=== PATIENT | female | born 1985 | race African-American/Black ===

== ENCOUNTER 2016-12-09 23:43 | Emergency (ER) | payer OTHER ==
[~2016-12-09] VITALS: Ht 162.6 cm; Wt 73.0 kg
[~2016-12-09 23:43] MED LIST: ALBU1AER INH; MEDR4PAK3 PO; PRED20 PO; ZITH250T PO
[2016-12-09 23:45] VITALS: BP 129/82; PULSE 82; RESP 18; TEMP 98.4; O2SAT 100
[2016-12-10] MEDS ORDERED: ORPHENADRINE INJ 60 MG/2 ML AMP IM ONE
[2016-12-10] MEDS ORDERED: KETOROLAC TROMETHAMINE 60 MG/2 ML (IM) VIAL IM ONE
[2016-12-10] MEDS ORDERED: DICL50TA3 PO (00:01)
[2016-12-10] MEDS ORDERED: CYCL1TAB29 PO (00:01)
--- NOTE | 2016-12-10 00:06 | PD ---
HPI Chief Complaint: Pain: Acute or Chronic Time Seen by Provider: 00:01 Travel History International Travel<30 days: No Contact w/Intl Traveler<30days: No Traveled to known affect area: No History of Present Illness HPI 31-year-old black female presents to emergency department with complaints of right sided neck pain over the last day. She does not recall any traumatic injury. She noticed pain on the right neck when she had woken from sleep and this morning. She denies any recent illness. She's not sure whether she has some swollen lymph nodes on her neck. She denies any fever chills, ear pain, sore throat, cough or congestion. No trauma. PFSH Past Medical History Narrative Medical Lupus Hx Anticoagulant Therapy: No Asthma: Yes Autoimmune Disease: Yes (lupus) Cardiovascular Problems: No Chemotherapy: No Cerebrovascular Accident: No Diabetes: No Diminished Hearing: No Immune Disorder: Yes Respiratory: No Tetanus Vaccination: < 5 Years Past Surgical History Surgical History: No Previous Surgery Hysterectomy: No Social History Alcohol Use: No Tobacco Use: No Substance Use: No Allergies-Medications (Allergen,Severity, Reaction): Coded Allergies: Zofran (Verified Allergy, Unknown, SOB, 12/09/16) Reported Meds & Prescriptions Reported Meds & Active Scripts Active Diclofenac Sodium DR (Diclofenac Sodium) 50 Mg Tabdr 50 Mg PO TID Flexeril (Cyclobenzaprine HCl) 10 Mg Tab 10 Mg PO TID Review of Systems Except as stated in HPI: all other systems reviewed are Neg Physical Exam Narrative GENERAL: Well-developed, well-nourished in no apparent distress. Nontoxic appearing. HEAD: Normocephalic, atraumatic. EYES: Pupils equal round and reactive. Extraocular motions intact. No scleral icterus. No injection or drainage. ENT: Nose clear. Throat without erythema, tonsillar hypertrophy or exudate. Uvula midline. Airway patent. NECK: Trachea midline. No central bony tenderness. The patient has right paracervical tenderness and spasm. She has decreased range of motion due to pain. CARDIOVASCULAR: Regular rate and rhythm without murmurs, gallops, or rubs. RESPIRATORY: Clear to auscultation. Breath sounds equal bilaterally. No wheezes , rales, or rhonchi. GASTROINTESTINAL: Abdomen soft, non-tender, nondistended. No hepato-splenomegaly , or palpable masses. No guarding. EXTREMITIES: No clubbing, cyanosis, or edema. No joint tenderness. BACK: Nontender without deformity. No flank tenderness. NEUROLOGICAL: Awake, alert and oriented x 3 .Cranial nerves grossly intact. Motor and sensory grossly within normal limits. Normal speech. Data Data Last Documented VS Vital Signs Date Time Temp Pulse Resp B/P Pulse Ox O2 Delivery O2 Flow Rate FiO2 12/09/16 23:45 98.4 82 18 129/82 100 Orders Orphenadrine Inj (Norflex Inj) (12/10/16 00:00) Ketorolac Inj (Toradol Inj) (12/10/16 00:00) [facility] Medical Decision Making Medical Screen Exam Complete: Yes Emergency Medical Condition: Yes Medical Record Reviewed: Yes Differential Diagnosis MDM: High Differential diagnoses: Fracture, sprain, strain, dislocation, contusion, neurovascular injury, neck spasm Narrative Course Patient given Toradol 60 and Norflex 60 mg IM. This is neck spasm Diagnosis Primary Impression: Neck muscle spasm Patient Instructions: General Instructions Departure Forms: Tests/Procedures, Work Release Special Instructions: No work 3 days. Additional Instructions: Rest. Ice for the next 3 days followed by heat . Flexeril and Voltaren. Follow-up with a primary care doctor in one week. Return to the ER for emergencies. Med/Other Pt SpecificInfo: Prescription(s) given Scripts Diclofenac Sodium DR 50 Mg Tabdr50 Mg PO TID #30 TAB Prov:Emile Hussein MD 12/10/16 Cyclobenzaprine (Flexeril)10 Mg Tab10 Mg PO TID #30 TAB Prov:Emile Hussein MD 12/10/16 Disposition: 01 DISCHARGE HOME Condition: Stable Isak Fortune Dec 10, 2016 00:06
== END 2016-12-10 00:21 | disposition home or self-care (01) ==
LOC: NEPB 23:43
DX: M62.838 Other muscle spasm (principal); Z86.2 Personal history of diseases of the blood and blood-forming organs and certain disorders involving the immune mechanism; Z87.09 Personal history of other diseases of the respiratory system
CPT/HCPCS: 96374; 96375; 99283; J1885; J2360

== ENCOUNTER 2017-01-10 16:27 | Emergency (ER) | payer OTHER ==
[~2017-01-10] VITALS: Ht 162.6 cm; Wt 72.5 kg
[~2017-01-10 16:27] MED LIST changes: -ALBU1AER INH; +CYCL1TAB29 PO; +DICL50TA3 PO; -MEDR4PAK3 PO; -PRED20 PO; -ZITH250T PO
[2017-01-10 16:29] VITALS: BP 173/105; PULSE 73; RESP 16; TEMP 97.9; O2SAT 96
[2017-01-10] MEDS ORDERED: PRED-503 PO (19:14)
[2017-01-10] MEDS ORDERED: diphenhydrAMINE HCL 50 MG/ML VIAL IM ONE (19:15)
[2017-01-10] MEDS ORDERED: predniSONE 20 MG TAB PO ONE (19:15)
--- NOTE | 2017-01-10 19:17 | PD ---
HPI Chief Complaint: Skin Problem Time Seen by Provider: 19:14 Travel History International Travel<30 days: No Contact w/Intl Traveler<30days: No Traveled to known affect area: No History of Present Illness HPI 31-year-old white female presents to emergency department for evaluation of insect bite. She states that she was bitten in the left forearm yesterday by a unknown insect. She had immediate pain and swelling. It has intensified today. She denies any associated symptoms. No fever chills. No difficulty swallowing. No shortness of breath. Pain is moderate. No alleviating factors. PFSH Past Medical History Hx Anticoagulant Therapy: No Asthma: Yes Autoimmune Disease: Yes (lupus) Cardiovascular Problems: No Chemotherapy: No Cerebrovascular Accident: No Diabetes: No Diminished Hearing: No Immune Disorder: Yes Respiratory: Yes Tetanus Vaccination: < 5 Years ?: Not Past Surgical History Surgical History: No Previous Surgery Hysterectomy: No Social History Alcohol Use: Yes Tobacco Use: Yes Substance Use: No Allergies-Medications (Allergen,Severity, Reaction): Coded Allergies: Zofran (Verified Allergy, Unknown, SOB, 12/09/16) Reported Meds & Prescriptions Reported Meds & Active Scripts Active Deltasone (Prednisone) 20 Mg Tab 20 Mg PO TID Diclofenac Sodium DR (Diclofenac Sodium) 50 Mg Tabdr 50 Mg PO TID Flexeril (Cyclobenzaprine HCl) 10 Mg Tab 10 Mg PO TID Review of Systems Except as stated in HPI: all other systems reviewed are Neg Physical Exam Narrative GENERAL: This is a well-nourished, well-developed patient, in no apparent distress. SKIN: Patient has an area of erythema, warmth and induration to the dorsal proximal left forearm. This area measures approximately 6 x 6 cm. No fluctuance or pointing. This appears to be a reaction to the insect bite and not a true infection. HEAD: Atraumatic. Normocephalic. EYES: PERRL, EOMI, no discharge or injection. No scleral icterus. EARS: Clear NOSE: Nasal turbinates appear normal. THROAT: Mucosa pink and moist. Airway patent. NECK: Trachea midline. supple, moves head freely. LUNGS: Clear to auscultation. CV: Regular in rhythm. ABDOMEN: Soft nontender. EXT: No clubbing cyanosis or edema. Data Data Last Documented VS Vital Signs Date Time Temp Pulse Resp B/P Pulse Ox O2 Delivery O2 Flow Rate FiO2 01/10/17 16:29 97.9 73 16 173/105 96 Room Air Orders Diphenhydramine Inj (Benadryl Inj) (01/10/17 19:15) Prednisone (Deltasone) (01/10/17 19:15) Ice/Cold Pack (01/10/17 19:12) MDM Medical Decision Making Medical Screen Exam Complete: Yes Emergency Medical Condition: Yes Medical Record Reviewed: Yes Differential Diagnosis MDM: High Differential diagnoses: Abscess, folliculitis, cellulitis, lymphangitis, abrasion, contact dermatitis, insect bite with local reaction Narrative Course Patient's given prednisone 60 mg by mouth and Benadryl 50 mg IM. This insect bite local reaction Diagnosis Primary Impression: Insect bite of abdomen with local reaction Patient Instructions: General Instructions Additional Instructions: Rest. Elevation. Ice for the next 1-2 days. 50 g of Benadryl every 4 hours. Prednisone. Recheck with your doctor in 2 days. Return to the ER for problems. Med/Other Pt SpecificInfo: Prescription(s) given Scripts Prednisone (Deltasone)20 Mg Tab20 Mg PO TID #9 TAB Prov:Theresa Deras MD 01/10/17 Disposition: 01 DISCHARGE HOME Condition: Stable Isak Fortune Jan 10, 2017 19:17
== END 2017-01-10 19:35 | disposition home or self-care (01) ==
LOC: NEPB 16:27
DX: S50.862A Insect bite (nonvenomous) of left forearm, initial encounter (principal); Z72.0 Tobacco use; Z87.09 Personal history of other diseases of the respiratory system; Z86.2 Personal history of diseases of the blood and blood-forming organs and certain disorders involving the immune mechanism; W57.XXXA Bitten or stung by nonvenomous insect and other nonvenomous arthropods, initial encounter
CPT/HCPCS: 96372; 99281; J1200; J7512

== ENCOUNTER 2017-02-06 14:31 | Emergency (ER) | payer OTHER ==
[~2017-02-06] VITALS: Ht 162.6 cm; Wt 75.0 kg
[~2017-02-06 14:31] MED LIST changes: +PRED-503 PO
[2017-02-06 14:33] VITALS: BP 142/97; PULSE 97; RESP 16; TEMP 98.3; O2SAT 96
[2017-02-06] MEDS ORDERED: SODIUM CHLOR 0.9% 1000 ML INJ 1,000 ML IV ONE (16:00)
[2017-02-06] MEDS ORDERED: METOCLOPRAMIDE HCL 10 MG/2 ML VIAL IVP ONE (16:00)
[2017-02-06] MEDS ORDERED: diphenhydrAMINE HCL 50 MG/ML VIAL IVP ONE (16:00)
--- NOTE | 2017-02-06 16:13 | PD ---
HPI Chief Complaint: ENT Complaint Time Seen by Provider: 15:30 Travel History International Travel<30 days: No Contact w/Intl Traveler<30days: No Traveled to known affect area: No History of Present Illness HPI This is a 31-year-old female with history of lupus and asthma who presents for evaluation. She reports that since yesterday she said a generalized pulsating headache as well as tender posterior cervical lymph nodes. She has felt lightheaded and dizzy. She is also requesting refill of her albuterol medication. During examination she also endorses generalized scalp pain and pruritus which has been ongoing actually for 5 years. She has never been given a formal diagnosis for this issue but she reports that in the past she has been given prednisone which seems to help. Her physician is Dr. Galloway. [facility] Past Medical History Hx Anticoagulant Therapy: No Asthma: Yes Autoimmune Disease: Yes (lupus) Cardiovascular Problems: No Chemotherapy: No Cerebrovascular Accident: No Diabetes: No Diminished Hearing: No Immune Disorder: Yes Respiratory: Yes Tetanus Vaccination: < 5 Years Influenza Vaccination: No ?: Not LMP: 01/2017 Past Surgical History Surgical History: No Previous Surgery Hysterectomy: No Social History Alcohol Use: No Tobacco Use: Yes (11/13 ppd) Substance Use: No Allergies-Medications (Allergen,Severity, Reaction): Coded Allergies: Zofran (Verified Allergy, Unknown, SOB, 12/09/16) Reported Meds & Prescriptions Reported Meds & Active Scripts Active Triamcinolone Topical 0.025 % Oint 1 Applic TOPICAL QID 10 Days Prednisone 20 Mg Tab 20 Mg PO BID 5 Days Griseofulvin Microsize 500 Mg Tab 500 Mg PO DAILY 28 Days Review of Systems Except as stated in HPI: all other systems reviewed are Neg Physical Exam Narrative GENERAL: Well developed well-nourished female in no acute distress SKIN: Warm and dry. Significant tinea capitis formation on the chair, areas of hair loss, erythema, scaling. There is no fluctuant kerion formation. HEAD: Atraumatic. Normocephalic. EYES: Pupils equal and round. No scleral icterus. No injection or drainage. ENT: No nasal bleeding or discharge. Mucous membranes pink and moist. Minimal oropharyngeal erythema without exudate. NECK: Trachea midline. No JVD. Tender posterior cervical lymphadenopathy is noted. Neck supple full range of motion. CARDIOVASCULAR: Regular rate and rhythm. No murmur appreciated. RESPIRATORY: No accessory muscle use. Clear to auscultation. Breath sounds equal bilaterally. GASTROINTESTINAL: Abdomen soft, non-tender, nondistended. MUSCULOSKELETAL: No obvious deformities. No clubbing. No cyanosis. No edema. NEUROLOGICAL: Awake and alert. No obvious cranial nerve deficits. Motor grossly within normal limits. Normal speech. Data Data Last Documented VS Vital Signs Date Time Temp Pulse Resp B/P Pulse Ox O2 Delivery O2 Flow Rate FiO2 02/06/17 14:33 98.3 97 16 142/97 96 Orders Complete Blood Count With Diff (02/06/17 16:00) Comprehensive Metabolic Panel (02/06/17 16:00) Group A Rapid Strep Screen (02/06/17 16:00) Iv Access Insert/Monitor (02/06/17 16:00) Diphenhydramine Inj (Benadryl Inj) (02/06/17 16:00) Metoclopramide Inj (Reglan Inj) (02/06/17 16:00) Sodium Chlor 0.9% 1000 Ml Inj (Ns 1000 M (02/06/17 16:00) Ed Urine Pregnancytest Poc (02/06/17 16:00) Monoscreen (02/06/17 16:00) Electrocardiogram (02/06/17 ) Strep Culture (Group A) (02/06/17 16:30) Labs Laboratory Tests Test 02/06/17 16:30 White Blood Count 4.0 TH/MM3 Red Blood Count 4.47 MIL/MM3 Hemoglobin 14.2 GM/DL Hematocrit 42.4 % Mean Corpuscular Volume 95.0 FL Mean Corpuscular Hemoglobin 31.7 PG Mean Corpuscular Hemoglobin 33.4 % Concent Red Cell Distribution Width 13.5 % Platelet Count 203 TH/MM3 Mean Platelet Volume 9.5 FL Neutrophils (%) (Auto) 53.0 % Lymphocytes (%) (Auto) 30.1 % Monocytes (%) (Auto) 9.3 % Eosinophils (%) (Auto) 6.4 % Basophils (%) (Auto) 1.2 % Neutrophils # (Auto) 2.1 TH/MM3 Lymphocytes # (Auto) 1.2 TH/MM3 Monocytes # (Auto) 0.4 TH/MM3 Eosinophils # (Auto) 0.3 TH/MM3 Basophils # (Auto) 0.0 TH/MM3 CBC Comment DIFF FINAL Differential Comment Sodium Level 139 MEQ/L Potassium Level 4.2 MEQ/L Chloride Level 106 MEQ/L Carbon Dioxide Level 26.7 MEQ/L Anion Gap 6 MEQ/L Blood Urea Nitrogen 5 MG/DL Creatinine 0.73 MG/DL Estimat Glomerular Filtration 114 ML/MIN Rate Random Glucose 80 MG/DL Calcium Level 8.9 MG/DL Total Bilirubin 1.1 MG/DL Aspartate Amino Transf 10 U/L (AST/SGOT) Alanine Aminotransferase 14 U/L (ALT/SGPT) Alkaline Phosphatase 69 U/L Total Protein 8.2 GM/DL Albumin 4.0 GM/DL Monoscreen NEG MDM Medical Decision Making Medical Screen Exam Complete: Yes Emergency Medical Condition: Yes Medical Record Reviewed: Yes Interpretation(s) EKG sinus bradycardia, rate 56, no arrhythmias Differential Diagnosis Tinea corporis, migraine headache, infectious mononucleosis, pharyngitis, kerion , cellulitis Narrative Course This is a 31-year-old female who has suffered from significant scalp discomfort , redness, pruritus, scaling for 5 years. She presents now with a headache and posterior lymph node tenderness for one day. On examination she has severe tinea capitis. She has some posterior cervical lymphadenopathy likely secondary to this but she also notes a sore throat. Therefore mono screen, rapid strep screen was performed and was negative. She also reports significant headache. She was given a migraine cocktail of Benadryl, Reglan, IV fluids and she feels improved. The plan is to discharge the patient with griseofulvin. She reports that in the past her symptoms have improved with the use of steroids and so she'll be given triamcinolone cream as well as short course of prednisone. She is encouraged to follow-up with a slot machine department floorperson for further treatment of this issue. She is agreeable. Diagnosis Primary Impression: Tinea capitis Additional Instructions: Follow-up with a slot machine department floorperson such as Dr. Leslie Garg, address is [address] [place] [address] [address], [place] [address] phone number is [phone] call to make an appointment. Take the medication as prescribed. Stay well hydrated well-nourished and return for any emergent medical conditions. Med/Other Pt SpecificInfo: Prescription(s) given Scripts Triamcinolone Topical 0.025 % Oint1 Applic TOPICAL QID 10 Days Ref 0 Prov:Eri Mccullough MD 02/06/17 Prednisone 20 Mg Tab20 Mg PO BID 5 Days Ref 0 Prov:Eri Mccullough MD 02/06/17 Griseofulvin Microsize 500 Mg [id number] Mg PO DAILY 28 Days Ref 0 Prov:Eri Mccullough MD 02/06/17 Disposition: 01 DISCHARGE HOME Condition: Stable David Boyce Feb 06, 2017 16:13
[2017-02-06 16:44] LABS: AUTOMATED NEUTROPHIL # 2.1 TH/MM3 (1.8-7.7); BASOPHIL % 1.2 % (0.0-2.0); EOSINOPHIL # 0.3 TH/MM3 (0-0.4); EOSINOPHIL % 6.4 % (0.0-4.0); HEMATOCRIT 42.4 % (35.0-46.0); HEMO FLAGS DIFF FINAL; LYMPH % 30.1 % (9.0-44.0); LYMPHOCYTE # 1.2 TH/MM3 (1.0-4.8); MEAN CORPUSCULAR HEMOGLOBIN 31.7 PG (27.0-34.0); MEAN CORPUSCULAR HGB CONC 33.4 % (32.0-36.0); MONO % 9.3 % (0.0-8.0); PLATELET COUNT 203 TH/MM3 (150-450); RED BLOOD COUNT 4.47 MIL/MM3 (4.00-5.30); RED CELL DISTRIBUTION WIDTH 13.5 % (11.6-17.2)
--- NOTE | 2017-02-06 16:50 | PD ---
Data Data Last Documented VS Vital Signs Date Time Temp Pulse Resp B/P Pulse Ox O2 Delivery O2 Flow Rate FiO2 02/06/17 14:33 98.3 97 16 142/97 96 Orders Complete Blood Count With Diff (02/06/17 16:00) Comprehensive Metabolic Panel (02/06/17 16:00) Group A Rapid Strep Screen (02/06/17 16:00) Iv Access Insert/Monitor (02/06/17 16:00) Diphenhydramine Inj (Benadryl Inj) (02/06/17 16:00) Metoclopramide Inj (Reglan Inj) (02/06/17 16:00) Sodium Chlor 0.9% 1000 Ml Inj (Ns 1000 M (02/06/17 16:00) Ed Urine Pregnancytest Poc (02/06/17 16:00) Monoscreen (02/06/17 16:00) Electrocardiogram (02/06/17 ) Labs Laboratory Tests Test 02/06/17 16:30 White Blood Count 4.0 TH/MM3 Red Blood Count 4.47 MIL/MM3 Hemoglobin 14.2 GM/DL Hematocrit 42.4 % Mean Corpuscular Volume 95.0 FL Mean Corpuscular Hemoglobin 31.7 PG Mean Corpuscular Hemoglobin 33.4 % Concent Red Cell Distribution Width 13.5 % Platelet Count 203 TH/MM3 Mean Platelet Volume 9.5 FL Neutrophils (%) (Auto) 53.0 % Lymphocytes (%) (Auto) 30.1 % Monocytes (%) (Auto) 9.3 % Eosinophils (%) (Auto) 6.4 % Basophils (%) (Auto) 1.2 % Neutrophils # (Auto) 2.1 TH/MM3 Lymphocytes # (Auto) 1.2 TH/MM3 Monocytes # (Auto) 0.4 TH/MM3 Eosinophils # (Auto) 0.3 TH/MM3 Basophils # (Auto) 0.0 TH/MM3 CBC Comment DIFF FINAL Differential Comment MDM Supervised Visit with BRANDON: Yes Narrative Course I, Dr. Mccullough, have reviewed the advance practice practioner's documentation and am in agreement, met with the patient face to face, made the diagnosis, and the medical decision making was done by me. *My assessment and Findings: 31-year-old female with history of lupus, asthma here with complaint of headache, scalp rash, posterior cervical lymph nodes, lightheadedness and dizziness. On exam patient has grossly nonfocal neuro exam , GCS 15. She has quite significant tinea capitis with posterior cervical lymphadenopathy. Historically patient states that she's tried many medications when she was in the for this and prednisone has seemed to be the most helpful. Differential includes tenia capitis, kerion, strep pharyngitis, mono. Patient is overall well-appearing and I do not think she warrants any neuro imaging for her headache. If laboratory workup unremarkable will discharge to home with outpatient dermatology follow up. Additional Instruction: Follow-up with a director inpatient headache program such as Dr. Leslie Garg, address is [address] [place] [address] [address], [place] [address] phone number is [phone] call to make an appointment. Take the medication as prescribed. Stay well hydrated well-nourished and return for any emergent medical conditions. Scripts No Active Prescriptions or Reported Meds Eri Mccullough MD Feb 06, 2017 16:50
[2017-02-06 17:09] LABS: ALT (GPT) 14 U/L (10-53); ANION GAP 6 MEQ/L (5-15); AST (GOT) 10 U/L (15-37); BICARBONATE 26.7 MEQ/L (21.0-32.0); BLOOD UREA NITROGEN 5 MG/DL (7-18); CHLORIDE 106 MEQ/L (98-107); GLOMERULAR FILTRATION RATE 114 ML/MIN (>89); POTASSIUM 4.2 MEQ/L (3.5-5.1); SODIUM (NA) 139 MEQ/L (136-145)
[2017-02-06 17:11] LABS: ALKALINE PHOSPHATASE 69 U/L (45-117); TOTAL BILIRUBIN ADULT 1.1 MG/DL (0.2-1.0)
[2017-02-06] MEDS ORDERED: PRED20 PO (17:12)
[2017-02-06] MEDS ORDERED: GRIS1TAB PO (17:12)
[2017-02-06] MEDS ORDERED: TRIA0.022 TOPICAL (17:12)
--- NOTE | 2017-02-06 22:26 | EKG ---
Date Performed: 02/06/2017 Time Performed: 16:34:03 PTAGE: 31 years EKG: SINUS BRADYCARDIA BORDERLINE ECG PREVIOUS TRACING : 07/19/2016 19.03 Compared to the previous tracing rate slower DOCTOR: Vandana Avila Interpretating Date/Time 02/06/2017 22:24:08
== END 2017-02-06 17:59 | disposition home or self-care (01) ==
LOC: NEPB 14:31
DX: B35.0 Tinea barbae and tinea capitis (principal); R51 Headache; R59.0 Localized enlarged lymph nodes; R07.0 Pain in throat; R42 Dizziness and giddiness; R94.31 Abnormal electrocardiogram [ECG] [EKG]; F17.200 Nicotine dependence, unspecified, uncomplicated; Z87.09 Personal history of other diseases of the respiratory system; Z86.2 Personal history of diseases of the blood and blood-forming organs and certain disorders involving the immune mechanism
CPT/HCPCS: 80053; 84703; 85025; 86308; 87081; 87880; 93005; 96361; 96374; 96375; 99284; J1200; J2765; J7030

== ENCOUNTER 2017-05-07 11:57 | Emergency (ER) | payer OTHER ==
[~2017-05-07] VITALS: Ht 162.6 cm; Wt 70.0 kg
[~2017-05-07 11:57] MED LIST changes: -CYCL1TAB29 PO; -DICL50TA3 PO; +GRIS1TAB PO; -PRED-503 PO; +PRED20 PO; +TRIA0.022 TOPICAL
[2017-05-07 11:59] VITALS: BP 138/90; PULSE 80; RESP 16; TEMP 98.1; O2SAT 100
--- NOTE | 2017-05-07 12:27 | PD ---
Physical Exam Time Seen by Provider: 12:26 Narrative 32yo F c/o R thumb wound x 1 week. +nausea w/o vomiting. Denies fever. No prior antibiotic treatment. Patient seen in triage. Awaiting bed placement. VS reviewed. Data Data Last Documented VS Vital Signs Date Time Temp Pulse Resp B/P Pulse Ox O2 Delivery O2 Flow Rate FiO2 05/07/17 11:59 98.1 80 16 138/90 100 Room Air MDM Supervised Visit with BRANDON: Silvia Rolle May 07, 2017 12:27
--- NOTE | 2017-05-07 14:01 | PD ---
HPI Chief Complaint: Skin Problem Time Seen by Provider: 14:01 Travel History International Travel<30 days: No Contact w/Intl Traveler<30days: No Traveled to known affect area: No History of Present Illness HPI 32-year-old Afro-[place] female presents the emergency department with ongoing and worsening crusting skin lesions over the past week. Patient states she's had issues with skin lesions started her here, which [facility] as well as antifungal medications. She states the skin lesions now are disseminated, with the worst one now on her right distal thumb at the base of the nailbed. She also has a nickel-sized crusty lesion to the right medial lower leg, which has a small amount of drainage. Patient states she was last treated with antibiotics approximately a month ago with improvement. She is scheduled to see a primer expeditor and drier [facility] She came in today as her right thumb is more swollen and tender today. She denies fever, chills, or other constitutional symptoms. She denies any specific history of MRSA, HIV, diabetes or other medical issues. Her pain is localized to the right thumb and she states it as a 7/10 with movement. She is allergic to Zofran. PFSH Past Medical History Hx Anticoagulant Therapy: No Asthma: Yes Autoimmune Disease: Yes (lupus) Cardiovascular Problems: No Chemotherapy: No Cerebrovascular Accident: No Diabetes: No Diminished Hearing: No Immune Disorder: Yes Respiratory: Yes LMP: 04/26/2017 Past Surgical History Hysterectomy: No Social History Alcohol Use: No Tobacco Use: Yes (1/2 ppd) Substance Use: No Allergies-Medications (Allergen,Severity, Reaction): Coded Allergies: Zofran (Verified Allergy, Unknown, SOB, 12/09/16) Reported Meds & Prescriptions Reported Meds & Active Scripts Active Triamcinolone Topical 0.025 % Oint 1 Applic TOPICAL QID 10 Days Prednisone 20 Mg Tab 20 Mg PO BID 5 Days Griseofulvin Microsize 500 Mg Tab 500 Mg PO DAILY 28 Days Review of Systems Except as stated in HPI: all other systems reviewed are Neg General / Constitutional: No: Fever, Chills Eyes: No: Visual changes HENT: No: Headaches Cardiovascular: No: Chest Pain or Discomfort Respiratory: No: Shortness of Breath Gastrointestinal: No: Abdominal Pain Genitourinary: No: Dysuria Musculoskeletal: No: Pain Skin: Positive Lesions (see history present illness.), No Rash Neurologic: No: Weakness Psychiatric: No: Depression Endocrine: No: Polydipsia Hematologic/Lymphatic: No: Easy Bruising Physical Exam Narrative GENERAL: Patient appears in no acute distress. SKIN: Warm and dry. Patient has multiple diffuse crusty lesions to the scalp, base of the left index finger, left distal dorsal thumb, and both lower extremities greater on the right than the left. None of these have signs of abscess, or significant lymphangitis. HEAD: Atraumatic. Normocephalic. EYES: Pupils equal and round. No scleral icterus. No injection or drainage. ENT: No nasal bleeding or discharge. Mucous membranes pink and moist. NECK: Trachea midline. No JVD. CARDIOVASCULAR: Regular rate and rhythm. RESPIRATORY: No accessory muscle use. Clear to auscultation. Breath sounds equal bilaterally. GASTROINTESTINAL: Abdomen soft, non-tender, nondistended. Hepatic and splenic margins not palpable. MUSCULOSKELETAL: Extremities without clubbing, cyanosis, or edema. No obvious deformities. NEUROLOGICAL: Awake and alert. No obvious cranial nerve deficits. Motor grossly within normal limits. Five out of 5 muscle strength in the arms and legs. Normal speech. PSYCHIATRIC: Appropriate mood and affect; insight and judgment normal. Data Data Last Documented VS Vital Signs Date Time Temp Pulse Resp B/P Pulse Ox O2 Delivery O2 Flow Rate FiO2 05/07/17 11:59 98.1 80 16 138/90 100 Room Air Orders Wound Culture And Gram Stain (05/07/17 14:17) Levofloxacin (Levaquin) (05/07/17 14:30) [facility] Medical Decision Making Medical Screen Exam Complete: Yes Emergency Medical Condition: Yes Medical Record Reviewed: Yes Differential Diagnosis Acute on Chronic cellulitis. Psoriasis. Nonhealing wound. Narrative Course Patient is medically stable at time of exam. Patient is discussed with and examined with Dr. Woods. Wound culture is obtained from the right lower extremity. Patient will be treated on an outpatient basis with Levaquin, with her first dose of 750 mg now. Patient to continue Levaquin 500 mg daily for the next 10 days. Patient also given topical Bactroban to be PID. Patient is referred to the wound clinic to see Dr. Boyce. Wound culture is pending. Patient can return with worsening symptoms as needed. Diagnosis Primary Impression: Cellulitis Qualified Code: L03.90 - Cellulitis, unspecified cellulitis site Referrals: Carole Boyce MD call for appointment Patient Instructions: Cellulitis (DC), General Instructions Additional Instructions: Wound culture is obtained from the right lower extremity. Patient will be treated on an outpatient basis with Levaquin, with her first dose of 750 mg now. Patient to continue Levaquin 500 mg daily for the next 10 days. Patient also given topical Bactroban to be PID. Patient is referred to the wound clinic to see Dr. Boyce. Wound culture is pending. Patient can return with worsening symptoms as needed. Med/Other Pt SpecificInfo: Prescription(s) given, Wound Care Disposition: DISCHARGE HOME Condition: Stable Josh Beltrán May 07, 2017 14:01
[2017-05-07] MEDS ORDERED: LEVOFLOXACIN 750 MG TAB PO ONE (14:30)
[2017-05-07] MEDS ORDERED: LEVA500T20 PO (14:34)
[2017-05-07] MEDS ORDERED: MUPI2%T TOPICAL (14:34)
== END 2017-05-07 14:53 | disposition home or self-care (01) ==
LOC: NEPD 11:57
DX: L03.90 Cellulitis, unspecified (principal); B95.62 Methicillin resistant Staphylococcus aureus infection as the cause of diseases classified elsewhere; M79.644 Pain in right finger(s); F17.200 Nicotine dependence, unspecified, uncomplicated; Z87.09 Personal history of other diseases of the respiratory system; Z86.2 Personal history of diseases of the blood and blood-forming organs and certain disorders involving the immune mechanism
CPT/HCPCS: 86403; 87070; 87186; 99283